=== PATIENT | female | born 1975 | race Caucasian/White ===

== ENCOUNTER → 2019-04-11 | Outpatient (CLI) | payer BC ==
--- NOTE | 2019-04-11 17:36 | RAD ---
CT Head W/O Contrast: History: Headache with aura 24 hours Comparison: none Axial images were obtained without contrast. The donnelly and white matter appears normal and symmetrical for the patients age. There is no mass effect, extraaxial fluid collections or hydrocephalus. There is no gross bleed. There is no focal loss of donnelly-white matter distinction to suggest acute ischemia, i.e. stroke. Impression: No acute findings. RS Compliance Statement: One or more of the following individualized dose reduction techniques were utilized for this examination: 1. Automated exposure control 2. Adjustment of the mA and/or kV according to patient size 3. Use of iterative reconstruction technique Electronically signed by: Bhavesh Fair III, MD (04/11/2019 5:34 PM) [facility]
== END | disposition home or self-care (01) ==
LOC: CT 17:18
PROVIDERS: ATTEND Family Medicine
DX: R51 Headache (principal)
CPT/HCPCS: 70450

== ENCOUNTER 2020-01-15 03:46 | Inpatient (IN) | payer BC ==
[~2020-01-15] VITALS: Ht 160 cm; Wt 98.9 kg
[2020-01-15] MEDS ORDERED: ONDANSETRON PF 4 MG/2 ML VIAL. IVP ONE (04:30)
[2020-01-15] MEDS ORDERED: IV NORMAL SALINE 1,000ML 1,000 ML IV ONE (04:30)
[2020-01-15 04:50] LABS: BASO # 0.1 x10^3/uL (0.0-0.2); BASO % 1 % (0-3); EOS % 0 % (0-3); HEMATOCRIT 42.1 % (36.0-47.0); HEMOGLOBIN 13.7 g/dL (12.0-15.5); LYMPH # 1.2 x10^3/uL (1.0-4.8); LYMPH % 18 % (24-48); MEAN CORPUSCULAR HEMOGLOBIN 30 pg (25-35); MEAN CORPUSCULAR HGB CONC 33 g/dL (31-37); MEAN CORPUSCULAR VOLUME 91 fL (79-100); MONO # 0.8 x10^3/uL (0.0-1.1); MONO % 13 % (0-9); NEUT # 4.5 x10^3uL (1.8-7.7); NEUT % 69 % (31-73); PLATELET COUNT 232 x10^3/uL (140-400); RED BLOOD COUNT 4.64 x10^6/uL (3.50-5.40); WHITE BLOOD COUNT 6.6 x10^3/uL (4.0-11.0)
[2020-01-15 04:54] LABS: ANION GAP 10 (6-14); BLOOD UREA NITROGEN 10 mg/dL (7-20); BUN/CREATININE RATIO 8 (6-20); CALCIUM 8.8 mg/dL (8.5-10.1); CARBON DIOXIDE 25 mmol/L (21-32); CHLORIDE 97 mmol/L (98-107); CREATININE 1.2 mg/dL (0.6-1.0); GFR 48.8; GLUCOSE 234 mg/dL (70-99); POTASSIUM 4.3 mmol/L (3.5-5.1); SODIUM 132 mmol/L (136-145)
[2020-01-15] MEDS ORDERED: BUTALB/APAP/CAFEIN 50/325/40MG TABLET. PO ONE (05:00)
[2020-01-15] MEDS ORDERED: DEXAMETHASONE SOD PHOS 4 MG/ML VIAL. IVP ONE (05:00)
[2020-01-15 05:10] LABS: ALBUMIN 3.3 g/dL (3.4-5.0); ALBUMIN/GLOBULIN RATIO 0.8 (1.0-1.7); ALK PHOS 141 U/L (46-116); ALT (SGPT) 100 U/L (14-59); AST (SGOT) 101 U/L (15-37); MAGNESIUM 1.8 mg/dL (1.8-2.4); TOTAL BILIRUBIN 0.2 mg/dL (0.2-1.0); TOTAL PROTEIN 7.5 g/dL (6.4-8.2)
--- NOTE | 2020-01-15 05:35 | EKG ---
[address] [address] Test Date: 2020-01-15 Test Time: 04:46:49 Pat Name: NATALIIA CRAMER Department: Room: Gender: F [employer]: : 1975 Requested By: NELIA GONZALEZ Order Number: [id number] Reading MD: Measurements Intervals [place] Rate: 96 P: 29 DE: 138 QRS: 26 QRSD: 76 T: 59 QT: 344 QTc: 435 Interpretive Statements SINUS RHYTHM NORMAL ECG RI6.02 No previous ECG available for comparison
--- NOTE | 2020-01-15 05:53 | PHYS DOC ---
Past History Past Medical History: Diabetes, DVT, Fibromyalgia, Hypertension, Kidney Stones, Migraines Past Surgical History: Cholecystectomy, Hysterectomy Smoking: Non-smoker Alcohol Use: None Drug Use: None General Adult EDM: Chief Complaint: HEADACHE HPI: HPI: 44-year-old female presents with 2-day history of generalized malaise, headache, and nausea. Patient also reports subjective fever and chills. Patient reports she does have a history of chronic migraines but reports this headache is worse than her normal. Patient reports her muscles "ache ". Denies known exposure to COVID-19. Denies known sick contacts. Patient does report some associated shortness of air. Review of Systems: Review of Systems: Constitutional: Reports subjective fever and chills Eyes: Denies redness or eye pain HENT: Denies nasal congestion or sore throat Respiratory: Denies cough; reports shortness of breath Cardiovascular: Denies chest pain or palpitations GI: Denies abdominal pain or vomiting; reports nausea : Denies dysuria or hematuria Musculoskeletal: Denies back pain or joint pain Integument: Denies rash or skin lesions Neurologic: Reports headache; denies focal weakness or sensory changes Complete systems were reviewed and found to be within normal limits, except as documented in this note. Current Medications: Current Meds: Current Medications Medications (Trade) Dose Ordered Sig/[facility] Start Time Stop Time Status Last Admin Dose Admin Acetaminophen/ Butalbital/ Caffeine (Fioricet) 1 tab 1X ONCE 01/15/20 05:00 01/15/20 05:01 DC Dexamethasone Sodium Phosphate (Decadron) 10 mg 1X ONCE 01/15/20 05:00 01/15/20 05:01 DC Ondansetron HCl (Zofran) 4 mg 1X ONCE 01/15/20 04:30 01/15/20 04:31 DC 01/15/20 04:14 4 MG Sodium Chloride 1,000 ml @ 1,000 mls/hr 1X ONCE 01/15/20 04:30 01/15/20 05:29 DC 01/15/20 04:14 1,000 MLS/HR Allergies: Allergies: Allergies Coded Allergies Type Severity Reaction Last Updated Verified meperidine Allergy Severe 01/15/20 Yes morphine Allergy Intermediate 01/15/20 Yes Physical Exam: PE: Constitutional: Well developed, well nourished, uncomfortable, non-toxic ap pearance HENT: Normocephalic, atraumatic Eyes: PERRL, EOMI, conjunctiva normal, no discharge, no nystagmus noted Neck: Normal range of motion, reports tenderness with rotation of neck, supple, no meningeal signs Lungs & Thorax: No respiratory distress, equal chest rise and fall Abdomen: Soft, no tenderness, no guarding/rebound tenderness Skin: Warm, dry, no erythema, no rash Extremities: No tenderness, ROM intact, no edema Neurologic: Alert and oriented X 3, normal motor function, normal sensory function, no focal deficits noted Psychologic: Affect anxious, judgment normal Current Patient Data: Labs: Laboratory Tests Test 01/15/20 04:29 01/15/20 05:00 White Blood Count 6.6 x10^3/uL (4.0-11.0) Red Blood Count 4.64 x10^6/uL (3.50-5.40) Hemoglobin 13.7 g/dL (12.0-15.5) Hematocrit 42.1 % (36.0-47.0) Mean Corpuscular Volume 91 fL (79-100) Mean Corpuscular Hemoglobin 30 pg (25-35) Mean Corpuscular Hemoglobin Concent 33 g/dL (31-37) Red Cell Distribution Width 14.0 % (11.5-14.5) Platelet Count 232 x10^3/uL (140-400) Neutrophils (%) (Auto) 69 % (31-73) Lymphocytes (%) (Auto) 18 % (24-48) L Monocytes (%) (Auto) 13 % (0-9) H Eosinophils (%) (Auto) 0 % (0-3) Basophils (%) (Auto) 1 % (0-3) Neutrophils # (Auto) 4.5 x10^3uL (1.8-7.7) Lymphocytes # (Auto) 1.2 x10^3/uL (1.0-4.8) Monocytes # (Auto) 0.8 x10^3/uL (0.0-1.1) Eosinophils # (Auto) 0.0 x10^3/uL (0.0-0.7) Basophils # (Auto) 0.1 x10^3/uL (0.0-0.2) Sodium Level 132 mmol/L (136-145) L Potassium Level 4.3 mmol/L (3.5-5.1) Chloride Level 97 mmol/L (98-107) L Carbon Dioxide Level 25 mmol/L (21-32) Anion Gap 10 (6-14) Blood Urea Nitrogen 10 mg/dL (7-20) Creatinine 1.2 mg/dL (0.6-1.0) H Estimated GFR (Cockcroft-Gault) 48.8 BUN/Creatinine Ratio 8 (6-20) Glucose Level 234 mg/dL (70-99) H Lactic Acid Level 1.8 mmol/L (0.4-2.0) Calcium Level 8.8 mg/dL (8.5-10.1) Magnesium Level 1.8 mg/dL (1.8-2.4) Total Bilirubin 0.2 mg/dL (0.2-1.0) Aspartate Amino Transferase (AST) 101 U/L (15-37) H Alanine Aminotransferase (ALT) 100 U/L (14-59) H Alkaline Phosphatase 141 U/L (46-116) H Creatine Kinase 68 U/L (26-192) Creatine Kinase MB (Mass) < 0.5 ng/mL (0.0-3.6) Creatine Kinase MB Relative Index 0.7 % (0-4) Troponin I Quantitative < 0.017 ng/mL (0-0.055) Total Protein 7.5 g/dL (6.4-8.2) Albumin 3.3 g/dL (3.4-5.0) L Albumin/Globulin Ratio 0.8 (1.0-1.7) L Prothrombin Time 10.6 SEC (9.4-11.4) Prothrombin Time INR 1.0 (0.9-1.1) Activated Partial Thromboplast Time 25 SEC (23-33) D-Dimer (Candi) 1.05 mg/L (0.00-0.50) H Vital Signs: Vital Signs Date Time Temp Pulse Resp B/P (MAP) Pulse Ox O2 Delivery O2 Flow Rate FiO2 01/15/20 04:15 100.0 01/15/20 03:46 122 26 138/86 (103) 92 Room Air EKG: EKG: @0446 NSR at 96bpm, NO ST elevation, QRS 76ms, QT/QTc 344/435ms Radiology/Procedures: Radiology/Procedures: [] Course & Med Decision Making: Course & Med Decision Making Pertinent Labs and Imaging studies reviewed. (See chart for details) Patient presents with report of headache different than her normal migraines with associated body aches, generalized malaise and subjective fever/chills with associated nausea x 2 days. Denies known sick contacts. Denies trauma. Patient neurologically intact. NO meningeal signs. Patient with temp up to 100F upon arrival. Sats also down to 90% on RA. Improved with supplemental O2. Concern for possible COVID. COVID precautions in place. COVID testing pending. EKG with tachycardia. Labs obtained and posted to chart. WBC and lactic acid WNL. Troponin WNL. D-dimer elevated. CTA chest ordered and pending. 0600- Sign out given to Dr. Feliciano for further evaluation and final disposition. Discussed current findings and plan with patient, who acknowledges understanding and agreement. Jewell Disclaimer: Jewell Disclaimer: This electronic medical record was generated, in whole or in part, using a voice recognition dictation system. Departure Departure: Impression: Primary Impression: Headache Qualified Codes: R51.9 - Headache, unspecified Additional Impressions: Suspected 2019 novel coronavirus infection Hypoxia Elevated d-dimer Elevated liver enzymes Referrals: MARK MOCK MD (PCP) COVID-19 Assessment COVID-19 Patient Risks: Age 65 or older: No Sign of co-morbidity: Yes Exp to person + for COVID: No Exp to PUI: No Travel from affected area: No Lower respiratory symptoms: Yes Fever: Yes Other: Yes (SALDANA) PPE Use: Full PPE with N95 mask or PAPR: Yes NELIA GONZALEZ DO Jan 15, 2020 05:53
[2020-01-15] MEDS ORDERED: CONTRAST GIVEN. MC PRN (06:15)
[2020-01-15] MEDS ORDERED: IOHEXOL 350 MG/ML 100 ML VIAL. IV ONE (06:30)
--- NOTE | 2020-01-15 08:52 | RAD ---
Portable chest x-ray for shortness of breath, no prior. FINDINGS: Right hemidiaphragm is slightly elevated. There is a linear band of atelectasis in the right midlung, and there may be a subtle left basilar infiltrate. Heart size within normal limits. Impression: 1. Right midlung atelectasis, and possible subtle left retrocardiac infiltrate. Electronically signed by: Ivan Faustin MD (01/15/2020 8:49 AM) [id number]
[2020-01-15] MEDS ORDERED: AZITHROMYCIN 500 MG in IV NORMAL SALINE 250ML 250 ML IV ONE (09:30)
[2020-01-15] MEDS ORDERED: AZITHROMYCIN 500 MG VIAL. IV ONE ×2 (09:34→09:44)
[2020-01-15] MEDS ORDERED: cefTRIAXone SODIUM 1 GM VIAL ONE (09:34)
[2020-01-15] MEDS ORDERED: IV NORMAL SALINE 50ML 50 ML ONE (09:34)
[2020-01-15] MEDS ORDERED: IV NORMAL SALINE 250ML 250 ML ONE ×2 (09:34→09:44)
[2020-01-15 10:42] LABS: BILIRUBIN,URINE NEG (NEG); CLARITY,URINE TURBID; COLOR,URINE YELLOW; GLUCOSE,URINE 100 mg/dL (NEG); NITRITE,URINE NEG (NEG); UROBILINOGEN,URINE 0.2 mg/dL (0.2 mg/dL)
[2020-01-15 10:43] LABS: BACTERIA,URINE MANY /HPF (0-FEW); SQUAMOUS EPITHELIAL CELL,UR MANY /LPF; WBC,URINE >40 /HPF (0-4)
[2020-01-15 11:00] VITALS: BP 104/65
[2020-01-15] MEDS ORDERED: FLU VACC QS 2020-21(6MOS+)/PF 0.5 ML SYRINGE. VAX IM ONE (12:30)
[2020-01-15 13:00] VITALS: BP 103/74
--- NOTE | 2020-01-15 13:01 | NUR ---
NURSING NOTE: ADMISSION PT ARRIVED VIA EMS AT 1050. PT SETTLED IN ROOM. VITALS TAKEN. PT ORIENTED TO ROOM. MEDICATIONS REVIEWED, HISTORY REVIEWED. PT HAD NO QUESTIONS OR COMPLAINTS AT THIS TIME. PT RESTING IN ROOM. BEATRICE PERRIN
[2020-01-15 15:50] VITALS: BP 103/74
[2020-01-15] MEDS ORDERED: INSU100I30 SQ (17:07)
[2020-01-15] MEDS ORDERED: DULA1.5P SQ (17:07)
[2020-01-15] MEDS ORDERED: AMIT75TA PO (17:07)
[2020-01-15] MEDS ORDERED: LISI-338 PO (17:07)
[2020-01-15] MEDS ORDERED: VERA120T2 PO (17:07)
[2020-01-15] MEDS ORDERED: ALOG12.5 PO (17:07)
[2020-01-15] MEDS ORDERED: DULO60CA6 PO (17:07)
[2020-01-15] MEDS ORDERED: DEXTROSE 50% 25 GM / 50ML DISP.SYRIN. IV PRN (17:15)
--- NOTE | 2020-01-15 17:49 | HP ---
ADMIT DATE: 01/15/2020 HISTORY OF PRESENT ILLNESS: The patient is a 44-year-old female patient, who came to the Emergency Room with complaint of headache, generalized malaise and nausea. The patient also reports subjective fever and chills. Reports she does have a history of chronic migraines, but reports her headache is worse than her normal. She has also generalized myalgia, arthralgia. She denies exposure to COVID-19. No known sick contacts. Did complain of some shortness of air. She was evaluated in the Emergency Room and was extensively evaluated. She has had lab work, which was generally unremarkable except elevated liver enzymes. Her D-dimer was slightly elevated at 1.05. Urinalysis showed more than 40 wbc's, the urine was yellow turbid and showed many bacteria. She has also had a chest x-ray, which basically showed the patient to have right mid lung atelectasis and possible subtle left retrocardiac infiltrate and therefore, the patient was admitted with possible COVID-19 infection, elevated liver enzymes and possible community-acquired pneumonia. She was started on IV antibiotic and she was started on Rocephin and Zithromax and will be admitted for community-acquired pneumonia. She was swabbed for coronavirus and was kept on droplet precaution for now. PAST MEDICAL HISTORY: Significant for migraine, diabetes mellitus, fibromyalgia, hypertension, nephrolithiasis, nonalcoholic steatohepatitis and obstructive sleep apnea. PAST SURGICAL HISTORY: Significant for cholecystectomy, total abdominal hysterectomy. She did have also colonoscopy and a spontaneous pneumothorax that required chest tube placement, she was likely in high school. ALLERGIES: She is allergic to MORPHINE and DEMEROL. MEDICATIONS: We are still waiting to get the list of her home medications. FAMILY HISTORY: She has 2 brothers, who are younger and healthy. Her younger sister at age of 34 from cancer. Her father is still alive, but does not really keep in touch with her. Her mother is still alive at the age of 64 and was diagnosed with colon cancer. SOCIAL HISTORY: She is , has 3 daughters and 1 son. Never smoked, does not drink alcohol or use recreational drugs. She works from home for a [employer]. REVIEW OF SYSTEMS: The patient denied any blurring of vision, cataract, glaucoma or macular degeneration. Denied any earache, tinnitus or sensorineural deafness. Denied any nosebleeds, stuffy nose or postnasal drip. Denied any sore throat, sore tongue, toothache, hoarseness of voice or difficulty swallowing. Did complain of nausea, but no vomiting. Denied any diarrhea or constipation. Denied any dysuria, frequency or hematuria. Denied any chest pain. Did complain of shortness of breath, continued to have headache and also subjective feeling of fevers and chills. PHYSICAL EXAMINATION: GENERAL: When I examined her, she was resting slightly propped up in bed, in no apparent respiratory distress. On arrival, there was no pallor, jaundice, cyanosis or thyromegaly. No jugular venous distention. No limb edema. VITAL SIGNS: Her heart rate was 122, blood pressure was 138/86, temperature was 100, respiratory rate was 26 and oxygen saturation was 92% on room air. HEAD, EYES, EARS, NOSE AND THROAT: Showed normocephalic, atraumatic. NECK: Supple. HEART: Showed normal first and second heart sounds. No gallop or murmur. CHEST: Clear to auscultation. No crepitation or rhonchi. ABDOMEN: Distended, soft, nontender. No guarding or rigidity. No organomegaly. All hernial orifice intact. Bowel sounds normal. NEUROLOGIC: She was awake, alert, responding appropriately. All cranial nerves are intact. EXTREMITIES: She moves extremities without difficulty. She normally ambulates without assistance or assistive devices. LABORATORY DATA: Her lab work on arrival this morning showed a white cell count of 6600, hemoglobin 14, hematocrit 42, MCV 91, and a platelet count of 232,000. Her chemistry showed serum sodium of 132, potassium 4.3, chloride 97, bicarbonate 25, anion gap of 10, BUN 10, creatinine 1.2, estimated GFR was 48 mL per minute, her glucose was 134, lactic acid was 1.8, calcium was 8.8, magnesium was 1.8. Total bilirubin is normal. AST, ALT, alkaline phosphatase are all elevated. CK was 68. Troponin was less than 0.017. Total protein 7.5, albumin was 3.3. Her prothrombin time, INR and aPTT are normal. D-dimer slightly elevated at 1.05. Urinalysis showed the urine was yellow turbid with a pH of 5.5, specific gravity 1.010. The urine was negative for protein, small amount of glucose, negative for ketones, blood, nitrite, but there was moderate amount of leukocyte esterase, there was 1-2 rbc's, more than 40 wbc's, and too many bacteria. Her chest x-ray showed that the patient has right mid lung atelectasis and possible subtle left retrocardiac infiltrate. ASSESSMENT AND PLAN: The patient was admitted with probably community-acquired pneumonia, questionable coronavirus infection. She has elevated D-dimer. She has mild hyponatremia, hyperglycemia and elevated liver enzymes, likely due to nonalcoholic steatohepatitis. The patient was treated with IV fluid, IV ceftriaxone and Zithromax. We will continue the antibiotics. Continue with all her home medication. Monitor her lab works closely and keep on droplet precaution and await the result of her COVID-[address]ab[address] AILEEN MURO MD DR: RICKY/shaheed JOB#: [id number] / [id number]
[2020-01-15 19:54] VITALS: BP 102/63
[2020-01-15] MEDS: DULoxetine HCL 60 MG CAPSULE.DR PO SCH (20:57)
[2020-01-15] MEDS: VERAPAMIL SR 120 MG TABLET.ER. PO SCH (20:57)
[2020-01-15] MEDS: ONDANSETRON PF 4 MG/2 ML VIAL. IVP PRN (20:59)
[2020-01-15] MEDS: INSULIN GLARGINE SYRINGE. SQ SCH (21:00)
[2020-01-15 22:52] VITALS: BP 97/57
[2020-01-16 04:59] VITALS: BP 117/65
[2020-01-16] MEDS: ONDANSETRON PF 4 MG/2 ML VIAL. IVP PRN ×3 (05:05→20:49)
[2020-01-16 05:39] LABS: BASO % 0 % (0-3); EOS % 0 % (0-3); HEMATOCRIT 39.9 % (36.0-47.0); HEMOGLOBIN 12.8 g/dL (12.0-15.5); LYMPH % 18 % (24-48); MEAN CORPUSCULAR HEMOGLOBIN 30 pg (25-35); MEAN CORPUSCULAR HGB CONC 32 g/dL (31-37); MEAN CORPUSCULAR VOLUME 92 fL (79-100); MONO # 0.6 x10^3/uL (0.0-1.1); MONO % 10 % (0-9); NEUT # 4.3 x10^3uL (1.8-7.7); NEUT % 73 % (31-73); PLATELET COUNT 238 x10^3/uL (140-400); RED BLOOD COUNT 4.34 x10^6/uL (3.50-5.40); RED CELL DISTRIBUTION WIDTH 13.9 % (11.5-14.5); WHITE BLOOD COUNT 5.9 x10^3/uL (4.0-11.0)
[2020-01-16 05:53] LABS: ALBUMIN/GLOBULIN RATIO 0.7 (1.0-1.7); CALCIUM 8.6 mg/dL (8.5-10.1); CREATININE 1.1 mg/dL (0.6-1.0); POTASSIUM 4.1 mmol/L (3.5-5.1); TOTAL BILIRUBIN 0.2 mg/dL (0.2-1.0); TOTAL PROTEIN 7.1 g/dL (6.4-8.2)
[2020-01-16] MEDS: DULoxetine HCL 60 MG CAPSULE.DR PO SCH ×2 (09:02→20:56)
[2020-01-16] MEDS: LINAGLIPTIN 5 MG TABLET PO SCH (09:02)
[2020-01-16] MEDS: LISINOPRIL 5 MG TABLET. PO SCH (09:03)
[2020-01-16] MEDS: VERAPAMIL SR 120 MG TABLET.ER. PO SCH ×3 (09:03→20:58)
[2020-01-16] MEDS: AMITRIPTYLINE HCL 75 MG TABLET PO SCH (09:03)
[2020-01-16] MEDS: INSULIN LISPRO 300 UNITS/3 ML VIAL. SQ SCH ×3 (09:04→16:58)
[2020-01-16 10:30] VITALS: BP 117/71
[2020-01-16] MEDS ORDERED: FLU VACC QS 2020-21(6MOS+)/PF 0.5 ML SYRINGE. VAX IM ONE (12:45)
[2020-01-16 15:17] VITALS: BP 108/63
[2020-01-16] MEDS ORDERED: SUMAtriptan SUCC 6 MG/0.5 ML VIAL SQ ONE (15:30)
[2020-01-16] MEDS ORDERED: ASA/APAP/CAFFEINE 250/250/65MG TABLET. PO PRN (15:45)
--- NOTE | 2020-01-16 19:30 | PN ---
DATE: 01/16/2020 SUBJECTIVE: The patient is resting, slightly propped up in bed, continued to complain of severe headache despite that has not responded to injection of fentanyl. Denied any nausea or vomiting. Denied any blurring of vision, diplopia, tingling or numbness. PHYSICAL EXAMINATION: GENERAL: When I examined her, she was somewhat flushed. There is definitely no pallor, jaundice, cyanosis or thyromegaly. No jugular venous distention. No limb edema. VITAL SIGNS: Her heart rate was 104, blood pressure was 108/63, temperature was 99.6, respiratory rate was 20, and oxygen saturation was 95% on 2 liters of oxygen. HEAD, EYES, EARS, NOSE AND THROAT: Showed normocephalic, atraumatic. NECK: Supple. HEART: Normal first and second heart sounds. No gallop, rub or murmur. CHEST: Showed central trachea, equal bilateral expansion, air entry. Vesicular sounds with crepitation mostly on the right side posteriorly. I could not appreciate any rhonchi. ABDOMEN: Distended, soft, nontender. NEUROLOGIC: She was grossly intact. Her intake over the last 24 hours and output were incompletely recorded. LABORATORY DATA: Her lab work this morning showed a white cell count of 5900, hemoglobin 12.8, hematocrit 39, MCV 92, and platelet count 238,000. Her chemistry showed a serum sodium of 136, potassium 4.1, chloride 101, bicarbonate 28, anion gap of 7, BUN 15, creatinine 1.1, estimated GFR was 54 mL per minute. Her glucose was 311, calcium was 8.6. Total bilirubin is normal. AST, ALT, alkaline phosphatase is slightly elevated, but trending down. Her C-reactive protein was 45. Total protein 7.1, albumin 3. Her total prothrombin time, INR and aPTT normal. D-dimer was slightly elevated at 1.05. Urinalysis showed too many bacteria and more than 40 wbc's and moderate amount of leukocyte esterase. ASSESSMENT: 1. Healthcare-associated pneumonia. 2. Questionable coronavirus infection. 3. Hyponatremia, most probably dilutional hyperglycemia due to type 2 diabetes. 4. Elevated liver enzymes, likely due to nonalcoholic steatohepatitis. 5. Severe migraine headache. PLAN: My plan is to continue with IV ceftriaxone and Zithromax. I continued all her home medication. We did start her on fentanyl hoping that that will take care of her migraine headache without much improvement and therefore I will start a trial of Imitrex 6 mg subcutaneous once this afternoon and we will decide on further management accordingly. Her COVID-19 is still pending at the time of this dictation. AILEEN MURO MD DR: RICKY/shaheed JOB#: [id number] / [id number]
[2020-01-16] MEDS: INSULIN GLARGINE SYRINGE. SQ SCH (20:50)
[2020-01-16] MEDS: HYDROcodone/APAP 5/325MG 1 TAB TABLET PO PRN (20:51)
[2020-01-16 21:02] VITALS: BP 110/68
[2020-01-16 22:54] VITALS: BP 95/55
--- NOTE | 2020-01-17 04:01 | NUR ---
PT WAS IN BED APON ASSESSMENT AND MEDICATION ADMINISTRATION. PT HAD COMPLAINTS OF BEING SOB AND HAVING A MIGRAINE. PT RECEIVED LORTAB FOR PAIN AND FEVER ALSO INCREASED HER 0XYGEN TO 3.5 L/MIN NASAL CANNULA. PT WAS ABLE TO SLEEP MOST THE NIGHT WITH NO COMPLAINTS AFTER LORTAB ADMINISTRATION. PT IS CURRENTLY RESTING IN BED. WILL CONTINUE TO MONITOR.
[2020-01-17] MEDS: HYDROcodone/APAP 5/325MG 1 TAB TABLET PO PRN ×2 (05:01→09:25)
[2020-01-17 06:38] VITALS: BP 116/70
[2020-01-17 06:53] LABS: HEMATOCRIT 40.2 % (36.0-47.0); HEMOGLOBIN 13.1 g/dL (12.0-15.5); RED BLOOD COUNT 4.39 x10^6/uL (3.50-5.40); RED CELL DISTRIBUTION WIDTH 14.3 % (11.5-14.5); WHITE BLOOD COUNT 5.7 x10^3/uL (4.0-11.0)
[2020-01-17 06:58] LABS: ALBUMIN/GLOBULIN RATIO 0.8 (1.0-1.7); CALCIUM 8.1 mg/dL (8.5-10.1); CREATININE 1.3 mg/dL (0.6-1.0); GFR 44.5; POTASSIUM 3.7 mmol/L (3.5-5.1); TOTAL BILIRUBIN 0.3 mg/dL (0.2-1.0)
--- NOTE | 2020-01-17 08:06 | NUR ---
NSG NOTE; DESAT PT ON O2 6L NC THIS AM AND WAS FOUND TO HAVE AN O2 SAT OF 80%. PT WAS PLACED ON SIMPLE MASK AND REQUIRED O2 8L LITER TO RETURN O2 SATS TO 90%. HOB ELEVATED. DR MURO CALLED AND NEW ORDERS OBTAINED
[2020-01-17] MEDS: AMITRIPTYLINE HCL 75 MG TABLET PO SCH (08:26)
[2020-01-17] MEDS: LINAGLIPTIN 5 MG TABLET PO SCH (08:26)
[2020-01-17] MEDS: DULoxetine HCL 60 MG CAPSULE.DR PO SCH (08:26)
[2020-01-17] MEDS: INSULIN LISPRO 300 UNITS/3 ML VIAL. SQ SCH (08:29)
[2020-01-17] MEDS: ONDANSETRON PF 4 MG/2 ML VIAL. IVP PRN ×2 (08:57→13:48)
[2020-01-17] MEDS: VERAPAMIL SR 120 MG TABLET.ER. PO SCH (09:00)
[2020-01-17] MEDS: LISINOPRIL 5 MG TABLET. PO SCH (09:00)
--- NOTE | 2020-01-17 09:08 | RAD ---
EXAM: Chest, single view. HISTORY: Oxygen saturation. COMPARISON: 01/15/2020 FINDINGS: A frontal view of the chest is obtained. There has been interval resolution of previously demonstrated right mid lung atelectasis or infiltrate. There is new linear atelectasis or infiltrate within the left upper lobe. There is no consolidation, pleural effusion or pneumothorax. The heart is normal in size. IMPRESSION: 1. Resolution of right midlung atelectasis or infiltrate. 2. New focal atelectasis or interstitial infiltrate within the left upper lobe. Electronically signed by: Maryanne Sanchez MD (01/17/2020 9:05 AM) [id number]
[2020-01-17 09:18] LABS: BGAS PH 7.39 (7.35-7.45)
[2020-01-17 10:52] VITALS: BP 93/68
--- NOTE | 2020-01-17 12:42 | NUR ---
NSG NOTE; NON REBREATHER MASK PLACED ON PT AT 8 L AT 0930 PER GWON RT. PT CONTINUES TO HAVE O2 SATS IN THE LOW 80'S AND HAS BEEN TITRATED UP TO 15 L O2 NONREBREATHER TO KEEP O2 SATS AT 89-91% AT THIS TIME. DR MURO NOTIFIED AND MAKING ROUNDS AT THIS TIME
[2020-01-17] MEDS ORDERED: KETOROLAC 30 MG/ML VIAL. IVP ONE (13:30)
[2020-01-17] MEDS ORDERED: methylPREDNISolone SOD SUCC PF 125 MG/2 ML VIAL. IV ONE (13:30)
[2020-01-17 13:35] VITALS: BP 91/65
[2020-01-17] MEDS ORDERED: IV NORMAL SALINE 500ML 500 ML IV ONE (13:45)
--- NOTE | 2020-01-17 14:04 | NUR ---
NSG NOTE; VS AND IV BOLUS BP 91/[address] MURO NOTIFIED AND NS 500 ML BOLUS STARTED
--- NOTE | 2020-01-17 14:27 | NUR ---
NSG NOTE; TRANSFER PT ACCEPTED TO ROOM 648 AT [facility]. REPORT CALLED TO LIAM ALEXANDER CALLED AND UPDATED
--- NOTE | 2020-01-17 14:34 | DS ---
DATE OF DISCHARGE: HOSPITAL COURSE: The patient is a 44-year-old female patient who was admitted on 01/14 through the Emergency Room to [facility] with a complaint of headache, generalized malaise, nausea. She also reported subjective fever and chills. Reports she does have history of chronic migraines, she reports her headache is worse than her normal. She also has generalized myalgia, arthralgia. She denied any exposure to COVID-19. No known sick contact. Did complain of some shortness of air. She was evaluated in the Emergency Room and was extensively investigated. Her lab works were generally unremarkable except elevated liver enzymes. Her D-dimer was slightly elevated. Her chest x-ray showed that she has mild right mid lung atelectasis and possible subtle left retrocardiac infiltrate and therefore, the patient was admitted with possible COVID-19 infection, elevated liver enzymes and possible community-acquired pneumonia. She was started on IV antibiotic in the form of Rocephin and Zithromax, was admitted, she was swabbed for coronavirus and was kept in droplet precaution for now. This morning, the patient was noted to be extremely hypoxic and despite being on 100% nonrebreather mask, her oxygen saturation was only 88%. We did do a repeat chest x-ray, which basically showed that the patient has resolution of her right mid lung atelectasis, infiltrate, but has a new focal atelectasis or interstitial infiltrate within the left upper lobe. Her blood gases showed a pH of 7.39, pCO2 of 41, pO2 of 60, bicarbonate 25, and oxygen saturation was 89% on FiO2 of 50%. Her white cell count continued to be on the normal side at 5700 and her D-dimer was slightly elevated at 1.05. PHYSICAL EXAMINATION: GENERAL: When I saw her, she was clearly tachypneic; however, there was no pallor, jaundice, cyanosis or thyromegaly. No jugular venous distention or limb edema. VITAL SIGNS: Her heart rate was 103, blood pressure was 93/68, temperature was 98, respiratory rate was 20, and oxygen saturation was 89% on 15 liters of oxygen by nonrebreather mask. HEAD, EYES, EARS, NOSE AND THROAT: Showed normocephalic, atraumatic. NECK: Supple. HEART: Showed normal first and second heart sounds with no gallop, rub or murmur. CHEST: Clear to auscultation. No crepitation or rhonchi. ABDOMEN: Distended, soft, nontender. No guarding or rigidity. No organomegaly. All hernial orifice intact. Bowel sounds normal. NEUROLOGIC: She was awake, alert, responding appropriately. All cranial nerves intact. EXTREMITIES: She moves extremities without difficulty. She ambulates normally without assistance or assistive devices. LABORATORY DATA: Her lab work this morning showed a white cell count of 5700, hemoglobin 13, hematocrit 40, MCV 92, and platelet count 299,000. Her chemistry showed a serum sodium 135, potassium 3.7, chloride 99, bicarbonate 29, anion gap of 7, BUN 16, creatinine 1.3, estimated GFR was 44 mL per minute. Her glucose 173, calcium was 8.1. Total bilirubin normal, however, AST, ALT, alkaline phosphatase are all elevated. Her total protein 7, albumin was 3. DISCHARGE MEDICATIONS: She was discharged and transferred to [facility] to continue on alogliptin 12.5 mg once a day, amitriptyline 75 mg daily, Trulicity 1.5 mg subcutaneously weekly, duloxetine for Cymbalta 60 mg twice a day. She is on Tresiba 22 units subcutaneously at bedtime, lisinopril 5 mg once a day and verapamil 120 mg twice a day. She was also discharged on ceftriaxone 1 g IV daily, hydrocodone/APAP 5/325 one tablet every 6 hours, Excedrin Migraine 2 tablets every 6 hours. FINAL DISCHARGE DIAGNOSES: 1. Acute hypoxic respiratory failure. 2. Community-acquired pneumonia. 3. Questionable coronavirus infection. 4. Hyponatremia, most likely dilutional due to hyperglycemia secondary to type 2 diabetes mellitus. 5. Elevated liver enzymes, likely due to nonalcoholic steatohepatitis. 6. Severe migraine headache. AILEEN MURO MD DR: RICKY/shaheed JOB#: [id number] / [id number]
--- NOTE | 2020-01-17 15:07 | NUR ---
NSG NOTE; DISCHARGED TO [facility] PAPER COPY OF CHART SENT WITH PT DISCHARGED AT 1445 VIA CART ACCOMP BY EMS FOR TRANSFER TO [facility] RM 028
[2020-01-22] MEDS ORDERED: NON FORMULARY ITEM (Dulaglutide (Trulicity) 1.5 MG) SQ SCH (09:00)
== END 2020-01-17 14:45 | disposition short-term general hospital (02) | DRG 177 ==
LOC: ER 03:46 → 1 SOUTH 10:53
PROVIDERS: ADMIT Internal Medicine; ATTEND Internal Medicine
DX: U07.1 COVID-19 (principal); J96.01 Acute respiratory failure with hypoxia; J18.9 Pneumonia, unspecified organism; E87.1 Hypo-osmolality and hyponatremia; K75.81 Nonalcoholic steatohepatitis (NASH); E11.65 Type 2 diabetes mellitus with hyperglycemia; Z79.4 Long term (current) use of insulin; G43.909 Migraine, unspecified, not intractable, without status migrainosus
CPT/HCPCS: 36415; 36600; 71045; 80053; 81001; 82553; 82803; 82947; 83605; 83735; 84484; 85025; 85027; 85379; 85610; 85730; 86140; 87077; 87086; 87186; 90471; 93005; 96361; 96365; 96367; 96375; J0456; J0696; J1100; J1815; J1885; J2405; J2930; J3010; J3030; J7040; J7050; 90686; 99285-25; J7030; U0003-CS